=== PATIENT | female | born 1985 | race Caucasian/White ===

== ENCOUNTER → 2022-01-16 07:51 | Outpatient (CLI) | payer OTHER, SELFPAY ==
[2022-01-16 08:52] LABS: Appearance Urine UA SL CLOUDY; Bilirubin Urine UA NEGATIVE (NEGATIVE); Color Urine UA YELLOW; Glucose Urine UA NEGATIVE (Negative); Ketones Urine UA 2+ (NEGATIVE); Leukocyte Esterase Urine UA 1+ (NEGATIVE); Nitrite Urine UA NEGATIVE (Negative); Occult Blood Urine UA 2+ (Negative); Protein Urine UA TRACE (Negative); Specific Gravity Urine UA 1.025 (1.000-1.035); Urobilinogen Urine UA 0.2 E.U./dL (0.2)
[2022-01-16 08:54] LABS: Add Manual Diff / Slide Review NO; Basophils Absolute Auto 0 /uL (0-100); Basophils Percent Auto 0.7 % (0-2); Eosinophils Absolute Auto 100 /uL (0-450); Eosinophils Percent Auto 1.8 % (2-4); Hemoglobin 12.8 g/dL (12.0-16.0); Lymphocytes Absolute Auto 800 /uL (1100-4500); Lymphocytes Percent Auto 17.8 % (25-40); Mean Corpuscular HGB Conc 34.7 % (30-36); Mean Corpuscular Hemoglobin 35.8 PG (26-34); Mean Corpuscular Volume 103.2 fL (80-100); Monocytes Absolute Auto 300 /uL (0-900); Monocytes Percent Auto 6.4 % (3-14); Neutrophils Absolute Auto 3500 /uL (1500-7000); Neutrophils Percent Auto 73.3 % (50-75); Platelet Count 247 X10^3/uL (150-400); Red Blood Cell Count 3.58 X10^6/uL (4.0-5.2); Red Cell Distribution Width 12.4 % (11.6-14.8); White Blood Cell Count 4.7 X10^3/uL (4.5-11.0)
[2022-01-16 08:59] LABS: Bacteria Urine None Seen; Culture Indicated Urine Specimen Cultured; RBC Urine 5-10/HPF (0-5/HPF); Squamous Epithelial Cell Urine >30 /HPF (0-5/HPF); WBC Urine 5-10/HPF (0-5/HPF)
[2022-01-16 09:36] LABS: Alanine Aminotransferase 15 IU/L (<35); Albumin 4.4 g/dL (3.5-5.0); Albumin Globulin Ratio 1.6 (1.0-2.8); Alkaline Phosphatase 57 U/L (38-126); Aspartate Aminotransferase 24 IU/L (14-36); BUN Creatinine Ratio 16.2 (6-22); Bilirubin Total 0.7 mg/dL (0.2-1.3); Blood Urea Nitrogen 12 mg/dL (7-17); Carbon Dioxide 26 mmol/L (22-32); Chloride 101 mmol/L (98-107); Cholesterol 180 mg/dL (140-199); Estimated Glomerular Filt Rate > 60 mL/min (>60); Globulin 2.7 g/dL (1.7-4.1); Glucose 85 mg/dL (70-100); HDL Cholesterol 64 mg/dL (40-60); HEMOLYSIS < 15 (0-50); LDL Cholesterol Calculated 110 mg/dL (<100); Potassium 4.1 mmol/L (3.4-5.1); Sodium 137 mmol/L (137-145); Total Protein 7.1 g/dL (6.3-8.2); Triglycerides 29 mg/dL (35-150)
[2022-01-16 09:55] LABS: TSH w/ Reflex to FT4 1.33 uIU/mL (0.47-4.68)
== END ==
PROVIDERS: PCP Family Medicine; Referring Provider Family Medicine; Visit Provider Family Medicine
DX: F41.9 Anxiety disorder, unspecified (principal); F43.10 Post-traumatic stress disorder, unspecified; F90.9 Attention-deficit hyperactivity disorder, unspecified type; N92.6 Irregular menstruation, unspecified; N94.6 Dysmenorrhea, unspecified; N97.9 Female infertility, unspecified
CPT/HCPCS: 36415; 80053; 80061; 81001; 84443; 85025; 87086

== ENCOUNTER → 2023-04-09 16:23 | Outpatient (CLI) | payer OTHER, SELFPAY ==
--- NOTE | 2023-04-09 | DI.US.S_ITS ---
PROCEDURE: US OB <= 14 WEEKS FETUS INDICATIONS: VIABILITY/CONFIRM VIABILITY OUTSIDE/PRIOR DATING DATA: Last menstrual period (LMP): 02/14/2023. LMP-based estimated date of delivery (YONY): 11/21/2023. First dating scan (date and location): Today's exam. Estimated date of delivery (YONY) from first dating scan: 11/20/2023. TECHNIQUE: Real-time scanning was performed of the fetus and maternal pelvic organs, with image documentation. Endovaginal scanning was also performed to better visualize the fetus and maternal ovaries. COMPARISON: None. FINDINGS: Single living intrauterine . Embryo: 3.9 cm, 7 weeks 6 days. Heart rate: Present, measuring 163 beats per minute Maternal organs: Simple right ovarian cyst. Trace fluid around the right ovary. Left ovary not seen. IMPRESSION: Single living intrauterine at 7 weeks 6 days, YONY of 11/20/2023. Findings are concordant with clinical dating. We strive to produce accurate, complete, and clear reports of imaging services. To assist us in improving patient care, this report was composed using standard report templates and voice recognition software. Therefore, it may contain abnormal punctuation, insertions and/or omissions. Occasional wrong-word or sound-alike substitutions may occur. Though we review the report and make efforts to correct it, we do recommend that the report be read carefully in proper context to recognize any text inaccuracies. Dictated by: Kolby Tilley M.D. on 04/10/2023 at 11:12 Approved by: Kolby Tilley M.D. on 04/10/2023 at 11:14
== END ==
PROVIDERS: PCP Family Medicine; Referring Provider Advanced Practice Midwife; Visit Provider Advanced Practice Midwife
DX: O36.80X0 Pregnancy with inconclusive fetal viability, not applicable or unspecified (principal); O09.521 Supervision of elderly multigravida, first trimester; Z3A.01 Less than 8 weeks gestation of pregnancy
CPT/HCPCS: 76801

== ENCOUNTER → 2023-06-09 12:29 | Outpatient (CLI) | payer OTHER, SELFPAY ==
[2023-06-09 13:44] LABS: Influenza A - CEPHEID Flu A NEGATIVE (NEGATIVE); Influenza B - CEPHEID Flu B NEGATIVE (NEGATIVE); Respiratory Syncytial Virus Negative (Negative)
[2023-06-09 13:47] LABS: COVID-19 CEPHEID 4-PLEX PCR Negative (Negative)
== END ==
PROVIDERS: PCP Family Medicine; Visit Provider Nurse Practitioner Family
DX: R05.9 Cough, unspecified (principal)
CPT/HCPCS: 0241U

== ENCOUNTER → 2023-08-12 08:10 | Outpatient (CLI) | payer OTHER, SELFPAY ==
[2023-08-12 09:21] LABS: Add Manual Diff / Slide Review NO; Basophils Absolute Auto 0 /uL (0-100); Basophils Percent Auto 0.5 % (0-2); Eosinophils Absolute Auto 100 /uL (0-450); Eosinophils Percent Auto 0.7 % (2-4); Hematocrit 31.3 % (36-46); Hemoglobin 10.8 g/dL (12.0-16.0); Lymphocytes Absolute Auto 1100 /uL (1100-4500); Lymphocytes Percent Auto 12.5 % (25-40); Mean Corpuscular HGB Conc 34.5 % (30-36); Mean Corpuscular Hemoglobin 36.5 PG (26-34); Monocytes Absolute Auto 300 /uL (0-900); Monocytes Percent Auto 3.4 % (3-14); Neutrophils Absolute Auto 7300 /uL (1500-7000); Neutrophils Percent Auto 82.9 % (50-75); Platelet Count 318 X10^3/uL (150-400); Red Blood Cell Count 2.96 X10^6/uL (4.0-5.2); Red Cell Distribution Width 13.1 % (11.6-14.8); White Blood Cell Count 8.9 X10^3/uL (4.5-11.0)
[2023-08-12 09:52] LABS: Glucose Fasting 77 mg/dL (70-100)
[2023-08-12 10:31] LABS: Glucose Tol Interpretation INTERPRETATION
[2023-08-12 11:14] LABS: Glucose 1 Hour 148 mg/dL (70-170)
[2023-08-12 11:19] LABS: Glucose 2 Hour 120 mg/dL (70-140)
== END ==
PROVIDERS: PCP Family Medicine; Referring Provider Advanced Practice Midwife; Visit Provider Advanced Practice Midwife
DX: O09.529 Supervision of elderly multigravida, unspecified trimester (principal)
CPT/HCPCS: 36415; 82951; 82952; 85025

== ENCOUNTER 2023-09-02 20:29 | Outpatient (CLI) | payer OTHER, SELFPAY ==
--- NOTE | 2023-09-02 | DI.US.S_ITS ---
PROCEDURE: US OB LIMITED INDICATIONS: evaluate bleeding OUTSIDE/PRIOR DATING DATA: Last menstrual period (LMP): 02/14/23 LMP-based estimated date of delivery (YONY): 11/21/23. First dating scan (date and location): 04/09/23. Estimated date of delivery (YONY) from first dating scan: 11/20/23. TECHNIQUE: Real-time scanning was performed of the fetus, with image documentation. Endovaginal scanning: Not needed COMPARISON: [facility], , OB <= 14 WEEKS FETUS, 04/09/2023, 16:34. FINDINGS: A single living intrauterine gestation is present. Presentation: Breech, spine maternal left. Placenta: Placental position is posterior, without previa. Note is made of 2 uterine fibroids measuring up to 3.3 cm in maximal dimension. Amniotic fluid index: 17.4 cm, normal range is 5-24 cm. Single deepest vertical pocket is 5.4 cm. heart rate: 140 beats per minute. Maternal cervical canal: 4.4 cm long. Normal lower limit is 2.5 cm. Estimated gestational age from initial scan: 20 weeks 4 days. IMPRESSION: Source of vaginal bleeding is not identified. Single living intrauterine gestation. Breech presentation at this time. Two relatively small uterine fibroids are incidentally noted. Dictated by: Kendall Smith M.D. on 09/02/2023 at 22:31 Approved by: Kendall Smith M.D. on 09/02/2023 at 22:34
--- NOTE | 2023-09-02 21:08 | PM.OBTRLD ---
Visit Information Visit Information Date of evaluation: 09/02/23 Primary OB Provider: Vanita House On-call OB Provider: Vanita House Reason for Evaluation: Yes other Comments/Additional reasons for admission: Renata Alvarez is a 38 yo at 28 weeks 4 days by sure LMP 02/14/2023 and concordant w/ US at 7 weeks 5 days here for evaluation of vaginal bleeding. Renata noticed some vaginal bleeding in her underwear and in the toilet after voiding around 1829 that persisted and was again noted at 2014. She also noticed her belly was feeling tight, although that has been normal for her recently. Feeling normal amounts of FM. No leaking of fluid. No sex or different activities in the last 24 hours prior to the onset of bleeding. Renata's care with Rojelio is complicated by advanced maternal age. Vital Signs Vital Signs: BP: 111/61 HR: 82 T: 36.3 C [facility] Medical History Heart murmur Infertility, female Acne PTSD (post-traumatic stress disorder) Anxiety ADHD (~1999) Fractures Foot pain MRSA (methicillin resistant Staphylococcus aureus) (~2014) Painful menstrual periods (~2021) Irregular menstrual cycle Human papilloma virus (~2009) Abnormal Pap smear of cervix (~2009) Surgical History History of adenoidectomy (~1991) H/O LEEP (~2005) Anesthesia History of bunionectomy (~2000) Family History Grandfather History of heart disease Mother Seizure disorder TBI (traumatic brain injury) Father Family estrangement Uncle Melanoma Social History marital status: number of children: 1 household members: spouse, children and friend(s) lives independently: Yes caregiver/support person: Yes housing: house pets and animals: Yes (2 dogs, 2 cats, guinea pig, fish) education level: high school 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, 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) current occupational exposures/hazards: No special jonathan needs: No travel history: recent (domestic only) seatbelt use: always helmet use: Yes water heater temp set < 120 deg: Yes working smoke detector in home: Yes fire extinguisher in home: Yes carbon monox detector in home: Yes firearms in home: Yes firearms unloaded and locked: Yes do you feel safe at home: Yes Smoking Status: Former smoker (quit early ) Tobacco: How many years used: 10 (~1/3 pack per day) second hand exposure: No alcohol intake: former substance use type: marijuana (not while /) during the past year weight has: remained stable well-balanced diet: daily or most days daily servings fruits/ve-4 caffeine: Yes Type(s) of exercise: weight lifting Review of Systems Review of Systems ROS: Yes All systems reviewed with the patient and are negative except as otherwise documented Exam Vital Signs (past 8 hours): see above Speculum Exam - Vagina: normal appearance of the vagina and vaginal bleeding Speculum Exam - Cervix: normal appearance of the cervix OB/External & Speculum: vaginal bleeding Other: Approx. 5 ml dark red blood pooled in vaginal vault Objective Imaging OB US >14wks Limited: My impression: Cervical length 4.4 cm LUCERO: 17 cm Breech lie No evidence of abruption Radiologist's impression: Pending Evaluation Evaluation Baseline heart rate: 135 Variability: Moderate (11-25) monitor accelerations: Present Monitor Decelerations: Absent Contraction Frequency (minutes): 0 (Rare) Uterine Contraction Intensity: Mild Category of Tracing: Reactive Diagnosis, Plan/Disposition Final Diagnosis (1) Spotting affecting in third trimester: Status: Acute (2) Supervision of primigravida of advanced maternal age, antepartum: Status: Acute Plan/Disposition Plan: Reassurance given for reassuring heart rate, no evidence of abruption or significant bleeding Discharge to home Encouraged Renata to call if she has increased bleeding, develops cramping, or decreased movement Follow up in clinic as previously scheduled OB Disposition: home
== END 2023-09-02 22:15 | disposition home or self-care (01) ==
LOC: OB 09-04 11:45
PROVIDERS: PCP Family Medicine; Referring Provider Nurse Practitioner Obstetrics & Gynecology; Visit Provider Nurse Practitioner Obstetrics & Gynecology
DX: O26.853 Spotting complicating pregnancy, third trimester (principal); O09.523 Supervision of elderly multigravida, third trimester; O26.893 Other specified pregnancy related conditions, third trimester; R10.9 Unspecified abdominal pain; Z3A.28 28 weeks gestation of pregnancy
CPT/HCPCS: 59025; 76815; G0378; G0379

== ENCOUNTER → 2023-09-14 17:57 | Outpatient (CLI) | payer OTHER, SELFPAY ==
--- NOTE | 2023-09-14 13:20 | DI.RAD.S_ITS ---
PROCEDURE: XR ANKLE RT MIN 3V INDICATIONS: Right ankle pain TECHNIQUE: 3 views of the ankle were acquired. COMPARISON: None. FINDINGS: Bones: No acute appearing fractures or dislocations. There is a remote appearing avulsion fracture seen distal to the medial malleolus. Ankle mortise is normally aligned. No suspicious bony lesions. The talar dome demonstrates no brian abnormality. Postoperative change of the 1st ray is partially seen. Soft tissues: No tibiotalar joint effusion. Achilles tendon appears normal. IMPRESSION: No brian acute bony abnormality is seen. If there is point tenderness (or other clinical suspicion for a fracture not seen on these images) then a dedicated CT could be considered for further evaluation, if clinically appropriate. Dictated by: Juanpablo Dawkins M.D. on 09/14/2023 at 12:45 Approved by: Juanpablo Dawkins M.D. on 09/14/2023 at 12:46
== END ==
PROVIDERS: PCP Family Medicine; Referring Provider Nurse Practitioner Family; Visit Provider Nurse Practitioner Family
DX: M25.571 Pain in right ankle and joints of right foot (principal)
CPT/HCPCS: 73610

== ENCOUNTER 2023-11-13 06:25 | Inpatient (IN) | payer BC, SELFPAY ==
--- NOTE | 2023-11-13 06:47 | PM.OBHP.1 ---
OB HPI Date/Time Date of admission: 11/13/23 Date Patient Seen: 11/13/23 Time Patient Seen: 06:38 History of Present Condition Chief complaint: Labor : 3 Para: 2 Estimated Date of Delivery: 11/21/23 Estimated Gestational Age (weeks): 38.6 Narrative: Renata Alvarez is a 38 year old female at 38 weeks 6 days by sure LMP and concordant with 7 week US. Renata woke up at 0545 with contractions increasing in intensity and occurring every 3 minutes and her water broke at home at approximately 0610. Renata arrived to the hospital at 0638 breathing through strong, frequent contractions, beginning to feel pushy, leaking clear fluid. Here with her . Her care with Rojelio was complicated by mild anemia in second trimester and AMA with reassuring testing and scheduled IOL tomorrow. History of Present care: good care, initiated at week # (10), number of visits (12) and pounds weight gain (49) Dating criteria: LMP confirmed by 1st trimester US Ultrasounds: normal 1st trimester US and normal mid trimester US Obstetrical complications: none Medical complications: none Preadmission Labs Blood type: A (+) positive -: Antibody screen: negative, Cystic fibrosis screen: negative, GBS status: negative, HBsAG: negative, HIV: negative, HSV 1: unknown (Not screened), HSV 2: unknown (Not screened) and RPR/VDLR: negative -: Chlamydia screen: not detected and Gonorrhea screen: not detected -: Rubella: immune and Varicella: immune HCT: 10.8 HCAB: negative PAP: Normal Cell-free DNA: Negative Narrative: 2-hr GTT: 77/148/120 Prior (ies) History: TAB in 2006; NSVB of viable female on 06/16/2017 Evaluation Evaluation Baseline heart rate: 125 Variability: Moderate (11-25) monitor accelerations: Absent Monitor Decelerations: Absent Contraction Frequency (minutes): 1 (1-1.5) Uterine Contraction Intensity: Strong/Firm Status: Category l Dilation (cm): 10 Effacement (%): 100 Comments: Leaking clear amniotic fluid [facility] Medical History Heart murmur Infertility, female Acne PTSD (post-traumatic stress disorder) Anxiety ADHD (~1999) Fractures Foot pain MRSA (methicillin resistant Staphylococcus aureus) (~2014) Painful menstrual periods (~2021) Irregular menstrual cycle Human papilloma virus (~2009) Abnormal Pap smear of cervix (~2009) Surgical History History of adenoidectomy (~1991) H/O LEEP (~2005) Anesthesia History of bunionectomy (~2000) Family History Grandfather History of heart disease Mother Seizure disorder TBI (traumatic brain injury) Father Family estrangement Uncle Melanoma Social History marital status: number of children: 1 household members: spouse, children and friend(s) lives independently: Yes caregiver/support person: Yes housing: house pets and animals: Yes (2 dogs, 2 cats, guinea pig, fish) education level: high school 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[employer], 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) current occupational exposures/hazards: No special jonathan needs: No travel history: recent (domestic only) seatbelt use: always helmet use: Yes water heater temp set < 120 deg: Yes working smoke detector in home: Yes fire extinguisher in home: Yes carbon monox detector in home: Yes firearms in home: Yes firearms unloaded and locked: Yes do you feel safe at home: Yes Smoking Status: Former smoker (quit early ) Tobacco: How many years used: 10 (~1/3 pack per day) second hand exposure: No alcohol intake: former substance use type: marijuana (not while /) during the past year weight has: remained stable well-balanced diet: daily or most days daily servings fruits/ve-4 caffeine: Yes Type(s) of exercise: weight lifting Meds Home Medications and Allergies Home Medications Medication Instructions Recorded Confirmed Type bupropion HCl 300 mg 24 hr tablet, 300 mg PO QAM #90 tabs 02/11/23 10/23/23 Rx extended release (Wellbutrin XL) cod liver oil 1 cap PO DAILY 03/26/23 10/23/23 History vitamin-ferrous sulfate tab PO 03/26/23 10/23/23 History 27 mg iron-folic acid 0.8 mg tablet Allergies Allergy/AdvReac Type Severity Reaction Status Date / Time No Known Drug Allergies Allergy Unverified 10/23/23 15:32 Review of Systems Review of Systems ROS: Yes All systems reviewed with the patient and are negative except as otherwise documented OB Exam Vital signs Blood Pressure: 116/81 Pulse Rate: 78 Temperature: 96.8 F Other: CNM continuously at bedside from time of arrival. At 0650, Renata was noted to be actively pushing, was examined and found to be complete, +1 station, vertex presentation. She pushed for a precipitous second stage of 13 minutes. FHR was category I throughout. Normal spontaneous vaginal of a vigorous female on 11/13/2023 at 0703 in MJ position. There was no nuchal cord. Shoulders delivered with maternal effort and infant caught by FOB and CNM. [place] was placed on maternal abdomen, stimulated, dried, and placed [id number]. Apgars 7 at 1 min and 8 at 5 min. IM pitocin delivered to maternal left thigh. Delayed cord clamping until cord stopped pulsing after 10 minutes, at which time cord was doubly clamped by SNM and cut by FOB. Cord blood collected. Gentle cord traction and maternal effort led to spontaneous delivery of intact placenta in Schultze presentation. Fundus immediately firm and bleeding scant. EBL of 380 ml. Perineum and vagina inspected and found to be intact. Baby and mother are stable. Assessment and Plan Assessment and Plan Assessment and Plan narrative: Assessment: Term, precipitous NSVB Anemia AMA Plan: Admit Routine orders with CBC in 6-8 hours Anticipate discharge in 24 hours Time-Based Coding :: [TOTAL MINUTES] spent with patient and on the chart (including review of chart, obtaining history, exam, reviewing outside data, placing orders, documenting exam and treatment plan, and counseling patient) on [DATE].
[2023-11-13 08:07] VITALS: BP 116/81; PULSE 78; TEMP 36
--- NOTE | 2023-11-13 08:41 | P.PCNOB_ITS ---
Labor & Delivery Delivery date: 11/13/23 Intrapartal Events: Precipitous Labor < 3 hours Cervical ripening method: none Induction method: none Delivery monitor: external FHT and external uterine Route of delivery: Episiotomy description: None L&D Laceration Description: None Quantitative Blood Loss: 380 Anesthesia Type: Other (NO2) Narrative: CNM continuously at bedside from time of arrival. At 0650, Renata was noted to be actively pushing, was examined and found to be complete, +1 station, vertex presentation. She pushed for a precipitous second stage of 13 minutes. FHR was category I throughout. Normal spontaneous vaginal of a vigorous female infant on 11/13/2023 at 0703 in MJ position. There was no nuchal cord. Shoulders delivered with maternal effort and caught by FOB and CNM. [place] was placed on maternal abdomen, stimulated, dried, and placed [id number]. Apgars 7 at 1 min and 8 at 5 min. IM pitocin delivered to maternal left thigh. Delayed cord clamping until cord stopped pulsing after 10 minutes, at which time cord was doubly clamped by SNM and cut by FOB. Cord blood collected. Gentle cord traction and maternal effort led to spontaneous delivery of intact placenta in Schultze presentation. Fundus immediately firm and bleeding scant. EBL of 380 ml. Perineum and vagina inspected and found to be intact. Baby and mother are stable. [place] Baby 1: gender: Female Presentation: vertex Position: Left Occiput Anterior Placenta delivery description: Spontaneous Cord Vessel Description: 3 Vessels score (1 min): 7 score (5 min): 8 weight: 4.412 kg Plan for aftercare: Routine care
[2023-11-13 09:30] VITALS: BP 112/70
[2023-11-13] MEDS: IBUPROFEN 600 MG TABLET PO ×3 (09:51→21:34)
[2023-11-13] MEDS: DERMOPLAST SPRAY 20% 60 ML 1 SPRAY TOP (09:51)
[2023-11-13] MEDS: ACETAMINOPHEN 325 MG TABLET 650 MG PO ×3 (09:51→21:33)
[2023-11-13 16:17] LABS: Hematocrit 32.3 % (36-46); Hemoglobin 11.3 g/dL (12.0-16.0); Mean Corpuscular HGB Conc 34.9 % (30-36); Mean Corpuscular Hemoglobin 37.4 PG (26-34); Platelet Count 290 X10^3/uL (150-400); Red Blood Cell Count 3.02 X10^6/uL (4.0-5.2); Red Cell Distribution Width 14.1 % (11.6-14.8); White Blood Cell Count 11.8 X10^3/uL (4.5-11.0)
[2023-11-13 16:31] LABS: Add Manual Diff / Slide Review YES
[2023-11-13 16:33] LABS: Neutrophils Absolute Manual 9558 /uL (3000-5900); Total Cells Counted 100
[2023-11-13 16:34] LABS: RBC Morphology Normal Morphology; Toxic Vacuolation Present
[2023-11-14] MEDS: IBUPROFEN 600 MG TABLET PO (05:21)
[2023-11-14] MEDS: ACETAMINOPHEN 325 MG TABLET 650 MG PO (05:22)
--- NOTE | 2023-11-14 07:20 | PM.OBDS.1 ---
Discharge Providers Provider Date of admission: 11/13/23 06:25 Discharge Date: 11/14/23 Primary care physician: Hilario Cardona MD Consults: 11/14/23 07:29 Consult to [employer] Routine Comment: Discharge provider: Vanita House CNM Summary Hospital Course Date Patient Seen: 11/14/23 Time Patient Seen: 07:21 Hospital Course: Precipitous NSVB of female . PPD 1: Ambulating, voiding, and independently. Nipples are sore and is using lanolin nipple cream. Mild cramping pain has been relieved by oral ibuprofen/acetaminophen. Bleeding has been light, no clots. Tolerating a general diet. Feeling ready for discharge home today. Peripartum Data Infant Delivery Method: Natural Vaginal Laceration Description: None Episiotomy description: None Procedures: o80 complications: none 1: Gender: Female Disposition of : home Discharge Diagnosis (1) Encounter for full-term uncomplicated delivery: Status: Acute Problem Details: Routine course (2) Precipitous delivery: Status: Acute Status at Discharge Cognitive/behavioral status at discharge: oriented and calm Functional status at discharge: independent ambulation Overall status at discharge: patient is progressing back to baseline Time Spent with Patient Time attestation: Total time spent providing and/or coordinating discharge services: Time spent: Greater than 30 minutes Objective Labs 11/13/23 16:08 Labs: Laboratory Results - last 24 hr 11/13/23 16:08 WBC 11.8 H RBC 3.02 L Hgb 11.3 L Hct 32.3 L MCV 107.0 H MCH 37.4 H MCHC 34.9 RDW 14.1 Plt Count 290 Neut % (Auto) Not Reportable Lymph % (Auto) Not Reportable [place] % (Auto) Not Reportable Eos % (Auto) Not Reportable Baso % (Auto) Not Reportable Lymph # (Auto) Not Reportable [place] # (Auto) Not Reportable Baso # (Auto) Not Reportable Total Counted 100 Seg Neutrophils % 78.0 H Band Neutrophils % 3.0 Lymphocytes % (Manual) 8.0 L Atypical Lymphs % 2.0 H Monocytes % (Manual) 8.0 Basophils % (Manual) 1.0 Neutrophils # (Manual) 9558 H Toxic Vacuolation Present H Plt Morphology Comment RBC Morphology Normal morphology Exam Vital Signs (past 8 hours): BP 111/66, HR 78bpm, RR 16/min, T 98.1F Temporal, SpO2 98% on RA Other: Fundus firm @ U-1; lochia scant, no clots; perineum intact Discharge Plan Discharge Plan Patient Disposition: Home Discharge orders & Medications Prescriptions: New ibuprofen 600 mg Tablet 600 mg PO Q6HR PRN (Reason: Pain, Mild (1-3)) 14 Days Qty: 60 0RF Continued bupropion HCl [Wellbutrin XL] 300 mg tablet extended release 24 hr 300 mg PO QAM Qty: 90 2RF cod liver oil Capsule 1 cap PO DAILY vit-ferrous sulfat-FA 27 mg iron- 0.8 mg tablet PO Follow up/Referrals: Vanita House CNM [[facility]] - (2 week follow-up phone appointment 11/27/23 @ 1115 6 week follow-up office visit 11/24/2023 @ 1115) Diet/Activity/Treatments Diet: Diet as Tolerated and Regular Diet comment: Hydrate and high fiber diet Activity: bed rest x 2 weeks, no heavy lifting x 4 weeks, pelvic rest x 6 weeks Skin/Wound/Dressing Care Report to your healthcare provider any signs of infection, such as:: chills, fever, increased pain, unusual drainage and unusual redness Visit Report/Discharge Packet Instructions: Depression Stand Alone Forms: Discharge: Care, Patient Portal/API, Stroke Signs & Symptoms Discharge Data Primary Care Provider: Hilario Cardona
== END 2023-11-14 08:40 | disposition home or self-care (01) | DRG 807 ==
PROVIDERS: Admitting Provider Nurse Practitioner Obstetrics & Gynecology; PCP Family Medicine; Referring Provider Nurse Practitioner Obstetrics & Gynecology; Visit Provider Nurse Practitioner Obstetrics & Gynecology
DX: O62.3 Precipitate labor (principal); Z37.0 Single live birth; Z3A.38 38 weeks gestation of pregnancy
CPT/HCPCS: 36415; 59050; 85007; 85025; G0379

== ENCOUNTER → 2025-01-19 08:22 | Outpatient (CLI) | payer BC, SELFPAY ==
[2025-01-19 09:23] LABS: Alanine Aminotransferase 16 IU/L (<35); Albumin 4.3 g/dL (3.5-5.0); Albumin Globulin Ratio 1.6 (1.0-2.8); Alkaline Phosphatase 60 U/L (38-126); Blood Urea Nitrogen 10 mg/dL (7-17); Calcium 9.0 mg/dL (8.4-10.2); Carbon Dioxide 30 mmol/L (22-32); Chloride 104 mmol/L (98-107); Cholesterol 186 mg/dL (140-199); Estimated Glomerular Filt Rate > 60 mL/min (>60); Globulin 2.7 g/dL (1.7-4.1); Glucose 94 mg/dL (70-99); HDL Cholesterol 78 mg/dL (40-60); HEMOLYSIS < 15 (0-50); Potassium 4.3 mmol/L (3.4-5.1); Sodium 137 mmol/L (137-145); Total Protein 7.0 g/dL (6.3-8.2); Triglycerides 35 mg/dL (35-150)
[2025-01-19 09:49] LABS: TSH w/ Reflex to FT4 1.21 uIU/mL (0.47-4.68)
[2025-01-19 10:09] LABS: Vitamin B12 232 pg/mL (239-931)
== END ==
PROVIDERS: PCP Family Medicine; Referring Provider Family Medicine; Visit Provider Family Medicine
DX: Z00.00 Encounter for general adult medical examination without abnormal findings (principal); M54.50 Low back pain, unspecified; G89.29 Other chronic pain; F41.9 Anxiety disorder, unspecified; O90.6 Postpartum mood disturbance; D64.9 Anemia, unspecified
CPT/HCPCS: 36415; 80053; 80061; 82607; 84443

== ENCOUNTER → 2025-04-05 14:26 | Outpatient (CLI) | payer BC, SELFPAY ==
--- NOTE | 2025-04-05 14:27 | DI.RAD.S_ITS ---
PROCEDURE: XR ANKLE RT MIN 3V INDICATIONS: Right ankle pain, fell on stairs TECHNIQUE: 3 views of the ankle were acquired. COMPARISON: [facility], CR, XR ANKLE RT MIN 3V, 09/14/2023, 13:10. FINDINGS: Bones: Postsurgical changes are again seen in 1st metatarsal shaft and 1st TMT joint with surgical hardware in place. No gross hardware loosening or failure. Ankle mortise is congruent. No acute ankle fracture or dislocation. Mild midfoot and hindfoot joint osteoarthritic changes are seen. Soft tissues: No tibiotalar joint effusion. Achilles tendon appears normal. IMPRESSION: No acute ankle fracture or dislocation. Mild ankle joint osteoarthritis. Postsurgical changes in great toe without gross hardware loosening or failure. Dictated by: Patricio Weldon M.D. on 04/05/2025 at 14:55 Approved by: Patricio Weldon M.D. on 04/05/2025 at 14:56
== END ==
PROVIDERS: PCP Family Medicine; Referring Provider Nurse Practitioner Family; Visit Provider Nurse Practitioner Family
DX: M19.071 Primary osteoarthritis, right ankle and foot (principal); M25.571 Pain in right ankle and joints of right foot
CPT/HCPCS: 73610